=== PATIENT | female | born 1970 | race Caucasian/White ===

== ENCOUNTER 2016-09-04 21:39 | Observation (INO) | payer MEDICARE ==
[~2016-09-04] VITALS: Ht 165.1 cm; Wt 63.5 kg
[2016-09-04] MEDS ORDERED: ONDANSETRON HCL 4 MG/2 ML VIAL IV ONE (22:15)
[2016-09-04 22:21] LABS: Urine RBC None Seen /hpf (0 - 4)
[2016-09-04 22:33] LABS: Basophils # (auto) 0 uL; Basophils % (auto) 0.3 % (0.0-2.0); Eosinophils # (auto) 0.3 uL; Eosinophils % (auto) 4.6 % (0.0-7.0); Hematocrit 47.3 % (36.0-46.0); Hemoglobin 15.4 g/dL (12.2-16.2); Lymphocytes # (auto) 1.5 uL; Lymphocytes % (auto) 25.6 % (10.0-50.0); Mean Corpuscular Hemoglobin 30.3 pg (28.0-32.0); Mean Corpuscular Hgb Conc. 32.6 g/dL (32.0-36.0); Mean Corpuscular Volume 92.8 fL (80.0-100.0); Mean Platelet Volume 9.3 fL (7.4-10.4); Monocytes # (auto) 0.2 uL; Monocytes % (auto) 3.7 % (0.0-12.0); Neutrophils # (auto) 3.9 uL; Neutrophils % (auto) 65.8 % (37.0-80.0); Platelet Count (auto) 123 10^3/uL (140-450); Red Cell Distribution Width 18.8 % (11.6-16.0); White Blood Cell 5.9 10^3/uL (4.4-10.8)
[2016-09-04 22:33] LABS: Urine Bilirubin Negative (Negative); Urine Blood Negative /uL (Negative); Urine Color Yellow (Yellow); Urine Glucose Normal (Normal); Urine Ketone Negative (Negative); Urine Nitrite Negative (Negative); Urine Squamous Epithelial Cell FEW /hpf (<5); Urine Urobilinogen Normal (Negative)
[2016-09-04] MEDS ORDERED: THIAMINE INJ 100 MG, MULTIPLE VITAMIN 10 ML, FOLIC ACID 1 MG, MAGNESIUM SULF SDV 50% 8 ... IV ONE ×5 (22:45)
[2016-09-04] MEDS ORDERED: SODIUM CHLORIDE 0.9% 1,000 ML IV ONE (22:45)
[2016-09-04 22:59] LABS: Albumin 3.2 g/dL (3.4-5.0); Calcium 8.5 mg/dL (8.5-10.1); Magnesium 2.1 mg/dL (1.6-2.6); Potassium 3.3 mmol/L (3.5-5.1)
[2016-09-04 23:02] LABS: BUN/Creatinine Ratio 12.9
[2016-09-04 23:04] LABS: Salicylate 2.9 mg/dL (2.8-20.0)
[2016-09-04 23:05] LABS: Bilirubin, Total 0.3 mg/dL (0.2-1.0)
[2016-09-04 23:12] LABS: Acetaminophen < 2.0 ug/mL (10-30)
[2016-09-05 07:14] VITALS: BP 132/66
[2016-09-05] MEDS ORDERED: PRO20T PO (09:20)
[2016-09-05] MEDS ORDERED: FOLI1TAB6 PO (09:20)
[2016-09-05] MEDS ORDERED: SPIR25TA89 PO (09:20)
[2016-09-05] MEDS ORDERED: FURO20TA3 PO (09:20)
[2016-09-05] MEDS ORDERED: CIP250T PO (09:20)
[2016-09-05] MEDS ORDERED: FUR20T PO (09:20)
[2016-09-05] MEDS ORDERED: HALO2CON8 PO (09:20)
[2016-09-05] MEDS ORDERED: SPIR50TA23 PO (09:20)
== END 2016-09-05 12:03 | disposition home or self-care (01) | DRG 918 ==
LOC: ER 21:47 → TELE 21:48 → UNDOADMOB 21:48 → OVERFLOW 09-05 06:36 → UNDODISOB 09-05 12:03 → ER 09-05 15:41
PROVIDERS: ADMIT Emergency Medicine; ATTEND Emergency Medicine
DX: T42.4X2A Poisoning by benzodiazepines, intentional self-harm, initial encounter (principal); K74.60 Unspecified cirrhosis of liver; F10.129 Alcohol abuse with intoxication, unspecified; F41.9 Anxiety disorder, unspecified; F32.9 Major depressive disorder, single episode, unspecified; Y92.89 Other specified places as the place of occurrence of the external cause
CPT/HCPCS: 36415; 71010; 80053; 80320; 80329; 81001; 81025; 82140; 83735; 85025; 93005; 96365; 96366; 96375; 99291; G0378; G0434; J2405; J7030; A4565

== ENCOUNTER 2017-09-07 22:13 | Inpatient (IN) | payer SELFPAY ==
[~2017-09-07] VITALS: Ht 165.1 cm; Wt 82.2 kg
[~2017-09-07 22:13] MED LIST: CIP250T PO; FOLI1TAB6 PO; FUR20T PO; FURO20TA3 PO; HALO2CON8 PO; PRO20T PO; SPIR25TA89 PO; SPIR50TA23 PO
[2017-09-07 23:11] LABS: Basophils # (auto) 0.1 uL; Basophils % (auto) 0.8 % (0.0-2.0); Eosinophils # (auto) 0.2 uL; Eosinophils % (auto) 2.5 % (0.0-7.0); Hematocrit 33.4 % (36.0-46.0); Hemoglobin 10.8 g/dL (12.2-16.2); Lymphocytes # (auto) 0.8 uL; Lymphocytes % (auto) 11.9 % (10.0-50.0); Mean Corpuscular Hemoglobin 27.5 pg (28.0-32.0); Mean Corpuscular Hgb Conc. 32.3 g/dL (32.0-36.0); Mean Corpuscular Volume 85.2 fL (80.0-100.0); Monocytes # (auto) 0.4 uL; Monocytes % (auto) 5.6 % (0.0-12.0); Neutrophils # (auto) 5.3 uL; Neutrophils % (auto) 79.2 % (37.0-80.0); Red Blood Cells 3.92 10^6/uL (4.0-5.20); Red Cell Distribution Width 18.5 % (11.8-14.3); White Blood Cell 6.6 10^3/uL (4.4-10.8)
[2017-09-07 23:12] LABS: Platelet Count (auto) 84 10^3/uL (140-450)
[2017-09-07 23:26] LABS: INR 1.09 (0.9-1.15); Prothrombin Time 11.9 sec (9.37-12.3)
[2017-09-07 23:35] LABS: BUN/Creatinine Ratio 22.9; Bilirubin, Total 0.6 mg/dL (0.2-1.0); Calcium 8.3 mg/dL (8.5-10.1); Potassium 3.6 mmol/L (3.5-5.1); Total Protein 7.2 g/dL (6.4-8.2)
[2017-09-08] MEDS ORDERED: cefTRIAXone 1GM/10ml IVPUSH 10 ML IV ONE (00:15)
[2017-09-08 00:18] LABS: Urine Bacteria NONE SEEN /hpf (None Seen); Urine Blood Negative /uL (Negative); Urine Mucus FEW (None Seen); Urine Specific Gravity 1.027 (1.001-1.035); Urine WBC 2 /hpf (0 - 5)
[2017-09-08] MEDS ORDERED: metroNIDAZOLE 500 MG TAB PO ONE (02:00)
[2017-09-08] MEDS ORDERED: ONDANSETRON HCL 4 MG/2 ML VIAL IV PRN (05:45)
[2017-09-08] MEDS ORDERED: MORPHINE SULFATE 4 MG/ML SYR/VIAL IV PRN (05:45)
[2017-09-08] MEDS: SODIUM CHLORIDE 0.9% 1,000 ML IV SCH ×2 (06:13→21:12)
[2017-09-08] MEDS: SPIRONOLACTONE 25 MG TAB PO SCH ×2 (06:21→18:11)
[2017-09-08] MEDS: metroNIDAZOLE 500MG/100ML 100 ML IV SCH ×3 (06:21→22:03)
[2017-09-08] MEDS: FUROSEMIDE 20 MG TAB PO SCH ×2 (06:21→18:11)
[2017-09-08 07:22] LABS: Hematocrit 33.5 % (36.0-46.0); Hemoglobin 10.8 g/dL (12.2-16.2)
[2017-09-08 08:30] VITALS: BP 124/75
[2017-09-08] MEDS ORDERED: FLUT110A INH (08:59)
[2017-09-08] MEDS ORDERED: IPRAAER6 IN (08:59)
[2017-09-08 09:00] VITALS: BP 124/75
[2017-09-08] MEDS ORDERED: INFLUENZA QUAD 2017-2018 0.5 ML SYRG IM ONE (09:00)
[2017-09-08] MEDS ORDERED: PNEUMOCOCCAL VACC POLYS 25 MCG/0.5 ML VIAL IM ONE (09:00)
[2017-09-08] MEDS: PANTOPRAZOLE 40 MG/10 ML VIAL IV SCH ×2 (10:04→22:02)
[2017-09-08] MEDS: FOLIC ACID 1 MG TAB PO SCH (10:04)
[2017-09-08] MEDS: cefTRIAXone 1GM/10ml IVPUSH 10 ML IV SCH (10:04)
[2017-09-08] MEDS: PROPRANOLOL HCL 20 MG TAB PO SCH ×2 (10:08→22:02)
[2017-09-08] MEDS ORDERED: ALBUTEROL SULF 2.5 MG/0.5ML(0.5%) NEB SOLN NEB ONE (12:15)
[2017-09-08] MEDS ORDERED: NICOTINE 14 MG/24HR TOPICAL PATCH TD ONE (12:30)
[2017-09-08 13:00] VITALS: BP 121/84
[2017-09-08] MEDS ORDERED: ALBUTEROL SULF 2.5 MG/0.5ML(0.5%) NEB SOLN ONE (13:12)
[2017-09-08 16:54] VITALS: BP 122/69
[2017-09-08] MEDS: TEMAZEPAM 15 MG CAP PO PRN (22:03)
[2017-09-08 22:23] VITALS: BP 111/80
[2017-09-08] MEDS: ALBUTEROL SULF 2.5 MG/0.5ML(0.5%) NEB SOLN NEB PRN (22:50)
[2017-09-09] MEDS: metroNIDAZOLE 500MG/100ML 100 ML IV SCH ×3 (05:25→21:24)
[2017-09-09] MEDS: SPIRONOLACTONE 25 MG TAB PO SCH ×2 (05:26→17:59)
[2017-09-09] MEDS: FUROSEMIDE 20 MG TAB PO SCH (05:26)
[2017-09-09 05:27] VITALS: BP 94/60
[2017-09-09 06:07] LABS: Basophils # (auto) 0 uL; Basophils % (auto) 0.7 % (0.0-2.0); Eosinophils # (auto) 0.2 uL; Eosinophils % (auto) 4.6 % (0.0-7.0); Hematocrit 33.1 % (36.0-46.0); Hemoglobin 10.9 g/dL (12.2-16.2); Lymphocytes # (auto) 0.8 uL; Lymphocytes % (auto) 20.6 % (10.0-50.0); Mean Corpuscular Hgb Conc. 32.9 g/dL (32.0-36.0); Mean Corpuscular Volume 85.2 fL (80.0-100.0); Monocytes # (auto) 0.3 uL; Monocytes % (auto) 7.1 % (0.0-12.0); Neutrophils # (auto) 2.5 uL; Nucleated Red Blood Cells % 0.1 %; Platelet Count (auto) 86 10^3/uL (140-450); Red Blood Cells 3.89 10^6/uL (4.0-5.20); Red Cell Distribution Width 18.8 % (11.8-14.3); White Blood Cell 3.7 10^3/uL (4.4-10.8)
[2017-09-09 06:20] LABS: BUN/Creatinine Ratio 15.4; Bilirubin, Total 0.4 mg/dL (0.2-1.0); Calcium 7.8 mg/dL (8.5-10.1); Potassium 3.5 mmol/L (3.5-5.1); Total Protein 7.1 g/dL (6.4-8.2)
[2017-09-09] MEDS: ALBUTEROL SULF 2.5 MG/0.5ML(0.5%) NEB SOLN NEB PRN ×2 (06:51→15:15)
[2017-09-09] MEDS: SODIUM CHLORIDE 0.9% 1,000 ML IV SCH ×2 (08:25→15:07)
[2017-09-09 09:00] VITALS: BP 86/49
[2017-09-09] MEDS: PROPRANOLOL HCL 20 MG TAB PO SCH ×2 (10:00→21:25)
[2017-09-09] MEDS: PANTOPRAZOLE 40 MG/10 ML VIAL IV SCH ×2 (10:27→21:24)
[2017-09-09] MEDS: cefTRIAXone 1GM/10ml IVPUSH 10 ML IV SCH (10:28)
[2017-09-09] MEDS: FOLIC ACID 1 MG TAB PO SCH (10:30)
[2017-09-09] MEDS: NICOTINE 14 MG/24HR TOPICAL PATCH TD SCH (10:30)
[2017-09-09 12:55] VITALS: BP 102/38
[2017-09-09 17:00] VITALS: BP 94/56
[2017-09-09] MEDS: TEMAZEPAM 15 MG CAP PO PRN (21:25)
[2017-09-09 21:40] VITALS: BP 110/60
[2017-09-10] MEDS: ALBUTEROL SULF 2.5 MG/0.5ML(0.5%) NEB SOLN NEB PRN ×2 (01:11→08:37)
[2017-09-10 05:17] VITALS: BP 107/70
[2017-09-10] MEDS: metroNIDAZOLE 500MG/100ML 100 ML IV SCH (05:18)
[2017-09-10] MEDS: SPIRONOLACTONE 25 MG TAB PO SCH (05:18)
[2017-09-10 08:00] VITALS: BP 120/71
[2017-09-10 09:00] VITALS: BP 120/71
[2017-09-10] MEDS: NICOTINE 14 MG/24HR TOPICAL PATCH TD SCH (09:24)
[2017-09-10] MEDS: cefTRIAXone 1GM/10ml IVPUSH 10 ML IV SCH (09:24)
[2017-09-10] MEDS: PANTOPRAZOLE 40 MG/10 ML VIAL IV SCH (09:25)
[2017-09-10] MEDS: PROPRANOLOL HCL 20 MG TAB PO SCH (09:26)
[2017-09-10] MEDS: FOLIC ACID 1 MG TAB PO SCH (09:26)
[2017-09-10 09:58] LABS: Basophils # (auto) 0 uL; Basophils % (auto) 0.8 % (0.0-2.0); Eosinophils # (auto) 0.2 uL; Eosinophils % (auto) 4.4 % (0.0-7.0); Hematocrit 32.4 % (36.0-46.0); Hemoglobin 10.5 g/dL (12.2-16.2); Lymphocytes # (auto) 0.7 uL; Lymphocytes % (auto) 15.7 % (10.0-50.0); Mean Corpuscular Hemoglobin 28.1 pg (28.0-32.0); Mean Corpuscular Hgb Conc. 32.3 g/dL (32.0-36.0); Mean Corpuscular Volume 87.2 fL (80.0-100.0); Monocytes # (auto) 0.3 uL; Monocytes % (auto) 6.1 % (0.0-12.0); Neutrophils # (auto) 3.3 uL; Platelet Count (auto) 86 10^3/uL (140-450); Red Blood Cells 3.72 10^6/uL (4.0-5.20); Red Cell Distribution Width 18.7 % (11.8-14.3); White Blood Cell 4.5 10^3/uL (4.4-10.8)
[2017-09-10 10:58] VITALS: BP 120/71
[2017-09-10] MEDS: SODIUM CHLORIDE 0.9% 1,000 ML IV SCH (12:13)
== END 2017-09-10 13:50 | disposition home or self-care (01) | DRG 378 ==
LOC: EDBD 22:13 → ER 22:16 → OVERFLOW 22:17 → WEST WING 09-08 08:48
PROVIDERS: ADMIT Nurse Practitioner; ATTEND Internal Medicine
DX: K92.0 Hematemesis (principal); K76.6 Portal hypertension; K70.30 Alcoholic cirrhosis of liver without ascites; K80.10 Calculus of gallbladder with chronic cholecystitis without obstruction; R16.1 Splenomegaly, not elsewhere classified; K92.1 Melena; I86.8 Varicose veins of other specified sites; K63.89 Other specified diseases of intestine; G47.00 Insomnia, unspecified; K52.9 Noninfective gastroenteritis and colitis, unspecified; B19.20 Unspecified viral hepatitis C without hepatic coma; F32.9 Major depressive disorder, single episode, unspecified; F41.9 Anxiety disorder, unspecified; Z79.899 Other long term (current) drug therapy
CPT/HCPCS: 36415; 74176; 80053; 81001; 82270; 85014; 85018; 85025; 85610; 85730; 93005; 94640; 94761; 96374; C9113; J3490

== ENCOUNTER 2018-03-16 12:23 | Inpatient (IN) | payer MEDICAID ==
[~2018-03-16] VITALS: Ht 165.1 cm; Wt 77.5 kg
[~2018-03-16 12:23] MED LIST changes: -CIP250T PO; +FLUT110A INH; -FOLI1TAB6 PO; -FUR20T PO; -FURO20TA3 PO; -HALO2CON8 PO; +IPRAAER6 IN; -PRO20T PO; -SPIR25TA89 PO; -SPIR50TA23 PO
[2018-03-16] MEDS ORDERED: SODIUM CHLORIDE 0.9% 1,000 ML IVB ONE (13:21)
[2018-03-16] MEDS ORDERED: PANTOPRAZOLE 40 MG/10 ML VIAL IV STA (13:21)
[2018-03-16] MEDS ORDERED: PROMETHAZINE HCL 25 MG/ML 1ML IV PRN (13:30)
[2018-03-16] MEDS ORDERED: MORPHINE SULFATE 4 MG/ML SYR/VIAL IV ONE (13:30)
[2018-03-16 13:42] LABS: Basophils # (auto) 0.1 uL; Eosinophils # (auto) 0.2 uL; Eosinophils % (auto) 2.5 % (0.0-7.0); Hematocrit 33.8 % (36.0-46.0); Lymphocytes # (auto) 1.3 uL; Lymphocytes % (auto) 18.4 % (10.0-50.0); Mean Corpuscular Hemoglobin 27.3 pg (28.0-32.0); Mean Corpuscular Hgb Conc. 32.5 g/dL (32.0-36.0); Monocytes # (auto) 0.4 uL; Monocytes % (auto) 5.9 % (0.0-12.0); Neutrophils % (auto) 72.2 % (37.0-80.0); Platelet Count (auto) 95 10^3/uL (140-450); Red Blood Cells 4.03 10^6/uL (4.0-5.20); Red Cell Distribution Width 18.8 % (11.8-14.3); White Blood Cell 6.9 10^3/uL (4.4-10.8)
[2018-03-16 13:56] LABS: INR 1.05 (0.9-1.15); Partial Thromboplastin Time 25.4 sec (23.78-33.04); Prothrombin Time 11.2 sec (9.27-12.13)
[2018-03-16 14:01] LABS: Albumin 3.1 g/dL (3.4-5.0); BUN/Creatinine Ratio 39.1; Calcium 8.6 mg/dL (8.5-10.1); Magnesium 1.7 mg/dL (1.6-2.6); Potassium 4.3 mmol/L (3.5-5.1)
[2018-03-16 14:03] LABS: Bilirubin, Total 0.6 mg/dL (0.2-1.0); Total Protein 7.8 g/dL (6.4-8.2)
[2018-03-16] MEDS ORDERED: PANTOPRAZOLE 80 MG in SODIUM CHL 0.9% 60 ML IV ONE (15:30)
[2018-03-16 15:47] LABS: Urine Bacteria NONE SEEN /hpf (None Seen); Urine Blood 3+ /uL (Negative); Urine Specific Gravity 1.017 (1.001-1.035); Urine WBC 2 /hpf (0 - 5)
[2018-03-16] MEDS ORDERED: DOCUSATE SOD 100 MG CAP PO PRN (17:45)
[2018-03-16] MEDS ORDERED: MORPHINE SULFATE 4 MG/ML SYR/VIAL IV PRN (17:45)
[2018-03-16] MEDS ORDERED: NITROGLYCERIN 0.4 MG SL TAB SL PRN (17:45)
[2018-03-16] MEDS ORDERED: HYDROcodone-ACET 5/325MG TAB PO PRN (17:45)
[2018-03-16] MEDS ORDERED: OCTREOTIDE ACETATE 100 MCG in SODIUM CHL 0.9% 50 ML IV ONE (17:45)
[2018-03-16] MEDS ORDERED: NICOTINE 14 MG/24HR TOPICAL PATCH TD ONE (17:45)
[2018-03-16] MEDS ORDERED: FAMOTIDINE (10MG/ML) 2ML VL IV ONE (17:45)
[2018-03-16] MEDS ORDERED: PANTOPRAZOLE 40 MG/10 ML VIAL IV ONE (17:45)
[2018-03-16] MEDS ORDERED: ACETAMINOPHEN 325 MG TAB PO PRN (17:45)
[2018-03-16] MEDS: Ensure Enlive Strawberry 8oz Bottle PO SCH (18:48)
[2018-03-16] MEDS: OCTREOTIDE ACETATE 500 MCG in SODIUM CHL 0.9% 99 ML IV SCH (18:55)
[2018-03-16 19:37] VITALS: BP 108/66
[2018-03-16] MEDS: BUDESONIDE (INHALATION) 0.5 MG/2 ML NEB NEB SCH (19:51)
[2018-03-16] MEDS: IPRATROPIUM BROM 0.5 MG/2.5ML INH SOL NEB SCH (19:51)
[2018-03-16] MEDS: ALBUTEROL SULF 2.5 MG/0.5ML(0.5%) NEB SOLN NEB SCH (19:52)
[2018-03-16] MEDS: SODIUM CHLORIDE 0.9% 1,000 ML IV SCH (20:21)
[2018-03-17 00:43] LABS: Hemoglobin 8.8 g/dL (12.2-16.2)
[2018-03-17 00:45] LABS: Hematocrit 26.9 % (36.0-46.0)
[2018-03-17] MEDS: ALBUTEROL SULF 2.5 MG/0.5ML(0.5%) NEB SOLN NEB SCH ×5 (01:49→23:50)
[2018-03-17] MEDS: IPRATROPIUM BROM 0.5 MG/2.5ML INH SOL NEB SCH ×5 (01:49→23:50)
[2018-03-17] MEDS: SODIUM CHLORIDE 0.9% 1,000 ML IV SCH ×3 (02:00→18:49)
[2018-03-17] MEDS: OCTREOTIDE ACETATE 500 MCG in SODIUM CHL 0.9% 99 ML IV SCH ×3 (03:45→23:45)
[2018-03-17 06:09] LABS: Basophils # (auto) 0 uL; Eosinophils # (auto) 0.1 uL; Eosinophils % (auto) 3.5 % (0.0-7.0); Hematocrit 31.6 % (36.0-46.0); Hemoglobin 10.3 g/dL (12.2-16.2); Lymphocytes # (auto) 0.6 uL; Lymphocytes % (auto) 23.9 % (10.0-50.0); Mean Corpuscular Hemoglobin 28.5 pg (28.0-32.0); Mean Corpuscular Hgb Conc. 32.6 g/dL (32.0-36.0); Mean Corpuscular Volume 87.4 fL (80.0-100.0); Monocytes # (auto) 0.2 uL; Monocytes % (auto) 5.6 % (0.0-12.0); Neutrophils # (auto) 1.8 uL; Nucleated Red Blood Cells % 0.1 %; Platelet Count (auto) 61 10^3/uL (140-450); Red Blood Cells 3.61 10^6/uL (4.0-5.20); Red Cell Distribution Width 19.9 % (11.8-14.3); White Blood Cell 2.7 10^3/uL (4.4-10.8)
[2018-03-17 06:31] LABS: Albumin 2.7 g/dL (3.4-5.0); Calcium 7.5 mg/dL (8.5-10.1); Potassium 3.6 mmol/L (3.5-5.1)
[2018-03-17] MEDS: BUDESONIDE (INHALATION) 0.5 MG/2 ML NEB NEB SCH ×2 (06:32→17:40)
[2018-03-17 06:33] LABS: BUN/Creatinine Ratio 28.7
[2018-03-17 06:35] LABS: Bilirubin, Total 0.4 mg/dL (0.2-1.0); Total Protein 6.7 g/dL (6.4-8.2)
[2018-03-17] MEDS: Ensure Enlive Strawberry 8oz Bottle PO SCH ×3 (08:00→18:10)
[2018-03-17] MEDS: POTASSIUM CHLORIDE 8 MEQ TAB PO SCH (10:00)
[2018-03-17] MEDS: MULTIPLE VITAMIN TAB PO SCH (10:00)
[2018-03-17] MEDS: FUROSEMIDE 20 MG TAB PO SCH (10:00)
[2018-03-17] MEDS ORDERED: PANTOPRAZOLE 40 MG/10 ML VIAL IV SCH (10:00)
[2018-03-17] MEDS: NICOTINE 14 MG/24HR TOPICAL PATCH TD SCH (10:00)
[2018-03-17] MEDS ORDERED: FAMOTIDINE (10MG/ML) 2ML VL IV SCH (10:00)
[2018-03-17] MEDS: ONDANSETRON HCL 4 MG/2 ML VIAL IV PRN (11:51)
[2018-03-17] MEDS: MORPHINE SULFATE 4 MG/ML SYR/VIAL IV PRN (11:51)
[2018-03-17] MEDS ORDERED: IBUPROFEN 400 MG TAB PO PRN (19:45)
[2018-03-17 19:53] LABS: Hematocrit 27.5 % (36.0-46.0)
[2018-03-17] MEDS ORDERED: traMADol HCL 50 MG TAB PO ONE (22:00)
[2018-03-17] MEDS: PANTOPRAZOLE 40 MG/10 ML VIAL IV SCH (22:11)
[2018-03-18] MEDS: TEMAZEPAM 15 MG CAP PO PRN (01:48)
[2018-03-18] MEDS: SODIUM CHLORIDE 0.9% 1,000 ML IV SCH ×3 (03:06→21:35)
[2018-03-18 07:19] LABS: Basophils # (auto) 0 uL; Eosinophils # (auto) 0.1 uL; Hemoglobin 7.8 g/dL (12.2-16.2); Lymphocytes # (auto) 0.6 uL; Monocytes # (auto) 0.1 uL; Nucleated Red Blood Cells % 0.1 %; Red Cell Distribution Width 19.1 % (11.8-14.3)
[2018-03-18 07:21] LABS: Basophils % (auto) 0.6 % (0.0-2.0); Eosinophils % (auto) 4.7 % (0.0-7.0); Hematocrit 23.9 % (36.0-46.0); Mean Corpuscular Hemoglobin 28.1 pg (28.0-32.0); Mean Corpuscular Hgb Conc. 32.7 g/dL (32.0-36.0); Mean Corpuscular Volume 85.9 fL (80.0-100.0); Monocytes % (auto) 5.4 % (0.0-12.0); Neutrophils # (auto) 1.5 uL; Neutrophils % (auto) 64.3 % (37.0-80.0); Platelet Count (auto) 60 10^3/uL (140-450); Red Blood Cells 2.79 10^6/uL (4.0-5.20); White Blood Cell 2.3 10^3/uL (4.4-10.8)
[2018-03-18] MEDS: ALBUTEROL SULF 2.5 MG/0.5ML(0.5%) NEB SOLN NEB SCH ×3 (07:43→18:45)
[2018-03-18] MEDS: IPRATROPIUM BROM 0.5 MG/2.5ML INH SOL NEB SCH ×3 (07:43→18:45)
[2018-03-18] MEDS: BUDESONIDE (INHALATION) 0.5 MG/2 ML NEB NEB SCH ×2 (07:43→18:45)
[2018-03-18] MEDS: Ensure Enlive Strawberry 8oz Bottle PO SCH ×3 (07:47→13:12)
[2018-03-18 07:49] LABS: Albumin 2.8 g/dL (3.4-5.0); BUN/Creatinine Ratio 17.4; Bilirubin, Total 0.4 mg/dL (0.2-1.0); Calcium 7.9 mg/dL (8.5-10.1); Potassium 3.6 mmol/L (3.5-5.1); Total Protein 6.5 g/dL (6.4-8.2)
[2018-03-18] MEDS: ONDANSETRON HCL 4 MG/2 ML VIAL IV PRN ×3 (08:09→20:48)
[2018-03-18] MEDS: MORPHINE SULFATE 4 MG/ML SYR/VIAL IV PRN ×2 (08:09→20:44)
[2018-03-18] MEDS ORDERED: SODIUM CHLORIDE LOCK 10 ML ONE (08:24)
[2018-03-18] MEDS ORDERED: EPINEPHrine HCL 1 MG/10 ML SYRG ONE (08:24)
[2018-03-18] MEDS ORDERED: LIDOCAINE VISCOUS 2% 15ML UD ONE (08:24)
[2018-03-18] MEDS ORDERED: diphenhdrAMINE HCL 50 MG/1 ML VL ONE (08:25)
[2018-03-18] MEDS: PANTOPRAZOLE 40 MG/10 ML VIAL IV SCH ×2 (10:15→22:13)
[2018-03-18] MEDS: fentaNYL CITRATE 100 MCG/2 ML VL ONE ×3 (11:09→11:15)
[2018-03-18] MEDS: MIDAZOLAM HCL 5 MG/ML-1ML VIAL ONE ×3 (11:09→11:15)
[2018-03-18] MEDS: MULTIPLE VITAMIN TAB PO SCH (12:28)
[2018-03-18] MEDS: FUROSEMIDE 20 MG TAB PO SCH (12:30)
[2018-03-18] MEDS: POTASSIUM CHLORIDE 8 MEQ TAB PO SCH (12:30)
[2018-03-18] MEDS: OCTREOTIDE ACETATE 500 MCG in SODIUM CHL 0.9% 99 ML IV SCH ×2 (12:36→20:15)
[2018-03-18] MEDS: NICOTINE 14 MG/24HR TOPICAL PATCH TD SCH (12:36)
[2018-03-18 18:16] LABS: Hematocrit 27.7 % (36.0-46.0); Hemoglobin 9.1 g/dL (12.2-16.2)
[2018-03-18 20:00] VITALS: BP 103/66
[2018-03-18 22:56] VITALS: BP 103/66
[2018-03-19] MEDS: IPRATROPIUM BROM 0.5 MG/2.5ML INH SOL NEB SCH ×4 (01:18→18:49)
[2018-03-19] MEDS: ALBUTEROL SULF 2.5 MG/0.5ML(0.5%) NEB SOLN NEB SCH ×4 (01:18→18:49)
[2018-03-19] MEDS: TEMAZEPAM 15 MG CAP PO PRN (01:25)
[2018-03-19] MEDS ORDERED: ALBUAER3 IN (01:31)
[2018-03-19] MEDS ORDERED: OMEP20TA PO (01:31)
[2018-03-19] MEDS ORDERED: ONDA-143 PO (01:31)
[2018-03-19 05:25] VITALS: BP_SYST 107; BP_SYST 80; BP_DIAS 52; BP_DIAS 75
[2018-03-19] MEDS: BUDESONIDE (INHALATION) 0.5 MG/2 ML NEB NEB SCH ×2 (05:50→18:49)
[2018-03-19] MEDS: SODIUM CHLORIDE 0.9% 1,000 ML IV SCH ×4 (06:05→22:40)
[2018-03-19 06:25] LABS: Basophils # (auto) 0 uL; Eosinophils # (auto) 0.1 uL; Monocytes # (auto) 0.1 uL; White Blood Cell 2.3 10^3/uL (4.4-10.8)
[2018-03-19 06:27] LABS: Basophils % (auto) 0.7 % (0.0-2.0); Eosinophils % (auto) 4.5 % (0.0-7.0); Lymphocytes # (auto) 0.5 uL; Lymphocytes % (auto) 22.1 % (10.0-50.0); Mean Corpuscular Hemoglobin 28.4 pg (28.0-32.0); Monocytes % (auto) 5.1 % (0.0-12.0); Neutrophils # (auto) 1.5 uL; Neutrophils % (auto) 67.6 % (37.0-80.0); Platelet Count (auto) 62 10^3/uL (140-450); Red Blood Cells 3.03 10^6/uL (4.0-5.20); Red Cell Distribution Width 19.6 % (11.8-14.3)
[2018-03-19 06:29] LABS: Hematocrit 26.3 % (36.0-46.0); Hemoglobin 8.7 g/dL (12.2-16.2)
[2018-03-19 06:45] LABS: BUN/Creatinine Ratio 11.6; Calcium 8.1 mg/dL (8.5-10.1); Potassium 3.9 mmol/L (3.5-5.1)
[2018-03-19] MEDS: OCTREOTIDE ACETATE 500 MCG in SODIUM CHL 0.9% 99 ML IV SCH (07:07)
[2018-03-19] MEDS: Ensure Enlive Strawberry 8oz Bottle PO SCH ×3 (08:00→18:57)
[2018-03-19] MEDS: PANTOPRAZOLE 40 MG/10 ML VIAL IV SCH ×2 (09:13→21:26)
[2018-03-19] MEDS: MORPHINE SULFATE 4 MG/ML SYR/VIAL IV PRN ×3 (09:14→22:18)
[2018-03-19] MEDS: MULTIPLE VITAMIN TAB PO SCH (09:14)
[2018-03-19] MEDS: POTASSIUM CHLORIDE 8 MEQ TAB PO SCH (09:14)
[2018-03-19] MEDS: ONDANSETRON HCL 4 MG/2 ML VIAL IV PRN ×3 (09:19→22:18)
[2018-03-19] MEDS: FUROSEMIDE 20 MG TAB PO SCH (09:22)
[2018-03-19 09:30] VITALS: BP 99/56
[2018-03-19 12:31] VITALS: BP 96/60
[2018-03-19] MEDS ORDERED: SUCRALFATE 1 GM/10 ML ORAL SUSP PO ONE (15:15)
[2018-03-19] MEDS: NICOTINE 14 MG/24HR TOPICAL PATCH TD SCH (15:54)
[2018-03-19 16:00] VITALS: BP 102/66
[2018-03-19] MEDS: SUCRALFATE 1 GM/10 ML ORAL SUSP PO SCH ×2 (17:48→21:26)
[2018-03-19 21:29] VITALS: BP 96/70
[2018-03-19 22:00] VITALS: BP 108/62
[2018-03-20] MEDS: TEMAZEPAM 15 MG CAP PO PRN (00:20)
[2018-03-20] MEDS: ALBUTEROL SULF 2.5 MG/0.5ML(0.5%) NEB SOLN NEB SCH ×3 (00:49→11:52)
[2018-03-20] MEDS: IPRATROPIUM BROM 0.5 MG/2.5ML INH SOL NEB SCH ×3 (00:49→11:52)
[2018-03-20 04:52] VITALS: BP 95/89
[2018-03-20] MEDS: SUCRALFATE 1 GM/10 ML ORAL SUSP PO SCH ×2 (06:00→12:04)
[2018-03-20 06:04] LABS: Basophils # (auto) 0 uL; Eosinophils # (auto) 0.1 uL; Lymphocytes # (auto) 0.5 uL; Monocytes # (auto) 0.2 uL; Monocytes % (auto) 6.1 % (0.0-12.0); Nucleated Red Blood Cells % 0.1 %; White Blood Cell 2.5 10^3/uL (4.4-10.8)
[2018-03-20 06:06] LABS: BUN/Creatinine Ratio 12.5; Calcium 7.4 mg/dL (8.5-10.1); Potassium 3.6 mmol/L (3.5-5.1)
[2018-03-20 06:08] LABS: Basophils % (auto) 0.8 % (0.0-2.0); Hematocrit 23.7 % (36.0-46.0); Lymphocytes % (auto) 20.7 % (10.0-50.0); Mean Corpuscular Hgb Conc. 33.7 g/dL (32.0-36.0); Mean Corpuscular Volume 85.9 fL (80.0-100.0); Neutrophils # (auto) 1.7 uL; Neutrophils % (auto) 68.4 % (37.0-80.0); Platelet Count (auto) 53 10^3/uL (140-450); Red Blood Cells 2.76 10^6/uL (4.0-5.20); Red Cell Distribution Width 19.6 % (11.8-14.3)
[2018-03-20] MEDS: BUDESONIDE (INHALATION) 0.5 MG/2 ML NEB NEB SCH (06:38)
[2018-03-20] MEDS: FUROSEMIDE 20 MG TAB PO SCH (09:03)
[2018-03-20] MEDS: POTASSIUM CHLORIDE 8 MEQ TAB PO SCH (09:03)
[2018-03-20] MEDS: PANTOPRAZOLE 40 MG/10 ML VIAL IV SCH (09:03)
[2018-03-20] MEDS: MULTIPLE VITAMIN TAB PO SCH (09:03)
[2018-03-20] MEDS: Ensure Enlive Strawberry 8oz Bottle PO SCH ×2 (09:04→12:04)
[2018-03-20] MEDS: MORPHINE SULFATE 4 MG/ML SYR/VIAL IV PRN (09:09)
[2018-03-20] MEDS: ONDANSETRON HCL 4 MG/2 ML VIAL IV PRN (09:09)
[2018-03-20] MEDS: SODIUM CHLORIDE 0.9% 1,000 ML IV SCH (09:19)
[2018-03-20 09:55] VITALS: BP 102/65
[2018-03-20] MEDS: NICOTINE 14 MG/24HR TOPICAL PATCH TD SCH (10:00)
[2018-03-20 10:10] VITALS: BP 102/65
[2018-03-20 13:05] VITALS: BP 96/49
== END 2018-03-20 13:40 | disposition home or self-care (01) ==
LOC: ER 12:23 → OVERFLOW 12:24 → TELE-WESTW 03-18 20:00
PROVIDERS: ADMIT Internal Medicine; ATTEND Internal Medicine
PROC: 06L38CZ Occlusion of Esophageal Vein with Extraluminal Device, Via Natural or Artificial Opening Endoscopic (ICD-10-PCS; principal; 2018-03-18 11:05)
DX: K74.60 Unspecified cirrhosis of liver (principal); I85.11 Secondary esophageal varices with bleeding; D69.6 Thrombocytopenia, unspecified; E11.21 Type 2 diabetes mellitus with diabetic nephropathy; E44.0 Moderate protein-calorie malnutrition; K29.71 Gastritis, unspecified, with bleeding; K76.6 Portal hypertension; B19.20 Unspecified viral hepatitis C without hepatic coma; F32.9 Major depressive disorder, single episode, unspecified; F41.9 Anxiety disorder, unspecified; N18.2 Chronic kidney disease, stage 2 (mild); D63.8 Anemia in other chronic diseases classified elsewhere; J44.9 Chronic obstructive pulmonary disease, unspecified; K31.89 Other diseases of stomach and duodenum; K80.20 Calculus of gallbladder without cholecystitis without obstruction; E66.9 Obesity, unspecified; F17.210 Nicotine dependence, cigarettes, uncomplicated; I12.9 Hypertensive chronic kidney disease with stage 1 through stage 4 chronic kidney disease, or unspecified chronic kidney disease; Z90.49 Acquired absence of other specified parts of digestive tract; Z88.5 Allergy status to narcotic agent; Z79.899 Other long term (current) drug therapy; Z82.5 Family history of asthma and other chronic lower respiratory diseases; Z88.1 Allergy status to other antibiotic agents
CPT/HCPCS: 36415; 43244; 71046; 74176; 80048; 80053; 81001; 82140; 83690; 83735; 84443; 84702; 85014; 85018; 85025; 85610; 85730; 93005; 94640; 94761; 96361; 96374; 96375; A6257; C9113; G0378; J2250; J2405

== ENCOUNTER 2018-07-05 19:35 | Emergency (ER) | payer MEDICAID ==
[~2018-07-05] VITALS: Ht 165.1 cm; Wt 63.5 kg
[~2018-07-05 19:35] MED LIST changes: +ALBUAER3 IN; +OMEP20TA PO; +ONDA-143 PO
[2018-07-05 19:45] VITALS: BP 118/71
== END 2018-07-06 00:32 | disposition left against medical advice (07) ==
LOC: ER 19:35 → EDBD 19:35 → ER 07-06 00:32
DX: R10.30 Lower abdominal pain, unspecified (principal); R11.2 Nausea with vomiting, unspecified; R19.7 Diarrhea, unspecified; Z53.21 Procedure and treatment not carried out due to patient leaving prior to being seen by health care provider